=== PATIENT | female | born 1975 | race Caucasian/White ===

== ENCOUNTER 2018-12-15 15:03 | Outpatient (CLI) | payer BC ==
--- NOTE | 2018-12-15 15:42 | ULT ---
"PRELIMINARY REPORT" THYROID ULTRASOUND: CLINICAL HISTORY: Thyroid Nodule COMPARISON:None FINDINGS: Right thyroid lobe: Measures 4.9 x 1.7 cm. Left thyroid lobe: Measures 6 4.6 x 1.8 cm. There is a circumscribed relatively isoechoic solid echo texture nodule of the superior aspect of the left thyroid lobe, 1.4 cm in diameter Isthmus: Measures 4 mm. IMPRESSION: Solid 1.4 cm nodule of the left thyroid lobe. This receives a TI-RADS score of TR 3, mildly suspiciou s. Given size that approximates 1.5 cm, recommend one-year follow-up thyroid ultrasound for continued assessment. Transcribed Date/Time: 12/15/2018 3:50 PM
== END 2018-12-15 15:04 | disposition home or self-care (01) ==
LOC: SCSULT 15:03
PROVIDERS: ATTEND Family Medicine
DX: R94.6 Abnormal results of thyroid function studies (principal); E04.1 Nontoxic single thyroid nodule
CPT/HCPCS: 76536